=== PATIENT | female | born 1980 | race American Indian/Alaskan Native ===

== ENCOUNTER 2019-05-29 10:03 | Emergency (ER) | payer MEDICAID ==
[2019-05-29] MEDS ORDERED: SODIUM CHLORIDE 0.9% 1000 ML 1,000 ML IV ONE (10:21)
[2019-05-29] MEDS ORDERED: MORPHINE 4 MG/1 ML INJ IV ONE (10:21)
[2019-05-29] MEDS ORDERED: ONDANSETRON 4 MG/2 ML INJ IV ONE ×2 (10:21→14:26)
[2019-05-29] MEDS ORDERED: BENZONATATE 100 MG CAP PO ONE (10:22)
[2019-05-29] MEDS ORDERED: HYDROcodone/ACETAMINOPHEN 5-325 MG TAB PO ONE (10:22)
[2019-05-29] MEDS ORDERED: ALBUTEROL 2.5 MG/3 ML NEBU IH ONE (10:23)
[2019-05-29] MEDS ORDERED: MAGNESIUM SULFATE 2 GM/50 ML BAG IV ONE (10:23)
[2019-05-29] MEDS ORDERED: IPRATROPIUM 0.02% NEBU 2.5 ML IH ONE (10:23)
--- NOTE | 2019-05-29 10:30 | Emergency Department Report ---
- General Chief Complaint: Dyspnea/Respdistress Stated Complaint: ELIEZER Time Seen by Provider: 05/29/19 10:12 Source: patient, EMS Mode of arrival: Stretcher Limitations: No Limitations - History of Present Illness Initial Comments: 38-year-old female the past medical history of asthma, HIV, chronic kidney disease and previous cholecystectomy presents to the hospital complaining of cough, nausea, vomiting, and diarrhea for a few days. Patient complains of cough productive of white sputum. She's having nausea, vomiting, and diarrhea and not tolerating by mouth intake. She states that she has not had a asthma attack and for years but she's had increased wheezing and shortness of breath for the last few days. Today she had wheezing with associated syncope and was told her room air saturation was 87%. She received a DuoNeb and Solu-Medrol via EMS and refused transport to the hospital. He does not currently have any bronchodilators at home. She does smoke cigarettes. She states her viral load is undetectable. She gives a history of 3 previous intubations. No fever reported but positive chills. Patient did receive a flu and pneumonia shot this season. Her doctors are affiliated with [facility]. - Related Data Previous Rx's Medication Instructions Recorded Last Taken Type ALBUTEROL Inhaler (OR & NICU) 2 puff IH QID PRN #8.5 gram 05/29/19 Unknown Rx [ProAir HFA Inhaler] Azithromycin [Zithromax TAB] 250 mg PO QDAY #4 tablet 05/29/19 Unknown Rx Benzonatate [Tessalon Perles] 100 mg PO Q8HR PRN #20 capsule 05/29/19 Unknown Rx HYDROcodone/APAP 5-325 [[place] 1 each PO Q6HR PRN #15 tablet 05/29/19 Unknown Rx 5/325] Inhaler, Assist Devices [Space 1 each MC PRN #1 spacer 05/29/19 Unknown Rx Chamber Plus] Prednisone [predniSONE 10 mg 10 mg PO .TAPER #1 tab.ds.pk 05/29/19 Unknown Rx (6-Day Pack, 21 Tabs)] Promethazine [Phenergan] 25 mg PO Q6HR PRN #20 tab 05/29/19 Unknown Rx Allergies Allergy/AdvReac Type Severity Reaction Status Date / Time aspirin Allergy Hives Verified 05/29/19 10:15 Penicillins Allergy Hives Verified 05/29/19 10:15 ED Review of Systems ROS: Stated complaint: ELIEZER Other details as noted in HPI Comment: All other systems reviewed and negative ED Past Medical Hx - Past Medical History Previous Medical History?: Yes Hx Renal Disease: Yes (CKD) Hx Asthma: Yes Hx HIV: Yes Additional medical history: bronchtitis - Surgical History Past Surgical History?: Yes Hx Cholecystectomy: Yes - Social History Smoking Status: Current Every Day Smoker Substance Use Type: Alcohol, Marijuana - Medications Home Medications: Home Medications Medication Instructions Recorded Confirmed Last Taken Type ALBUTEROL Inhaler (OR & NICU) 2 puff IH QID PRN #8.5 gram 05/29/19 Unknown Rx [ProAir HFA Inhaler] Azithromycin [Zithromax TAB] 250 mg PO QDAY #4 tablet 05/29/19 Unknown Rx Benzonatate [Tessalon Perles] 100 mg PO Q8HR PRN #20 capsule 05/29/19 Unknown Rx HYDROcodone/APAP 5-325 [[place] 1 each PO Q6HR PRN #15 tablet 05/29/19 Unknown Rx 5/325] Inhaler, Assist Devices [Space 1 each MC PRN #1 spacer 05/29/19 Unknown Rx Chamber Plus] Prednisone [predniSONE 10 mg 10 mg PO .TAPER #1 tab.ds.pk 05/29/19 Unknown Rx (6-Day Pack, 21 Tabs)] Promethazine [Phenergan] 25 mg PO Q6HR PRN #20 tab 05/29/19 Unknown Rx ED Physical Exam - General Limitations: No Limitations - Other Other exam information: General: No acute distress Head: Atraumatic Eyes: normal appearance ENT: Moist mucous membranes, no sinus pressure tenderness, mild left tm redness Neck: Normal appearance, no midline tenderness Chest: Bilateral wheezing, tachypnea, frequent coughing, right-sided chest wall tenderness CV: Regular rate and rhythm Abdomen: Soft, normal bowel sounds, nontender, nondistended, no rebound or guarding Back: Normal inspection Extremity: Normal inspection infection, full range of motion, no calf tenderness or leg edema Neuro: Alert O x 3, no facial asymmetry, speech clear, no gross motor sensory deficit Psych: Appropriate behavior Skin: No rash ED Course Vital Signs 05/29/19 05/29/19 05/29/19 10:10 10:15 10:16 Temperature 98.4 F Pulse Rate 83 82 Pulse Rate [ Right Lower Lobe] Respiratory 29 H 24 Rate Respiratory Rate [Right Lower Lobe] Blood Pressure 126/70 117/75 O2 Sat by Pulse 99 97 97 Oximetry 05/29/19 05/29/19 05/29/19 10:25 10:46 10:58 Temperature Pulse Rate 100 H Pulse Rate [ 80 Right Lower Lobe] Respiratory 24 24 Rate Respiratory 18 Rate [Right Lower Lobe] Blood Pressure 127/56 O2 Sat by Pulse 97 97 Oximetry 05/29/19 05/29/19 05/29/19 11:00 11:30 12:22 Temperature Pulse Rate 71 73 Pulse Rate [ Right Lower Lobe] Respiratory 16 22 Rate Respiratory Rate [Right Lower Lobe] Blood Pressure 127/56 120/67 98/73 O2 Sat by Pulse 100 100 99 Oximetry 05/29/19 05/29/19 12:30 13:00 Temperature Pulse Rate 75 Pulse Rate [ Right Lower Lobe] Respiratory 15 Rate Respiratory Rate [Right Lower Lobe] Blood Pressure 115/56 118/63 O2 Sat by Pulse 98 98 Oximetry ED Medical Decision Making - Lab Data Result diagrams: 05/29/19 10:36 05/29/19 10:36 Lab Results 05/29/19 05/29/19 05/29/19 Range/Units 10:36 10:36 10:36 WBC 5.4 (4.5-11.0) K/mm3 RBC 4.11 (3.65-5.03) M/mm3 Hgb 13.1 (10.1-14.3) gm/dl Hct 38.4 (30.3-42.9) % MCV 93 (79-97) fl MCH 32 (28-32) pg MCHC 34 (30-34) % RDW 14.2 (13.2-15.2) % Plt Count 249 (140-440) K/mm3 Lymph % (Auto) 42.6 H (13.4-35.0) % [place] % (Auto) 12.7 H (0.0-7.3) % Eos % (Auto) 0.9 (0.0-4.3) % Baso % (Auto) 0.9 (0.0-1.8) % Lymph # 2.3 (1.2-5.4) K/mm3 [place] # 0.7 (0.0-0.8) K/mm3 Eos # 0.0 (0.0-0.4) K/mm3 Baso # 0.0 (0.0-0.1) K/mm3 Seg Neutrophils % 42.9 (40.0-70.0) % Seg Neutrophils # 2.3 (1.8-7.7) K/mm3 Sodium 138 (137-145) mmol/L Potassium 3.7 (3.6-5.0) mmol/L Chloride 105.4 (98-107) mmol/L Carbon Dioxide 15 L (22-30) mmol/L Anion Gap 21 mmol/L BUN 15 (7-17) mg/dL Creatinine 1.2 (0.7-1.2) mg/dL Estimated GFR 50 ml/min BUN/Creatinine Ratio 13 % Glucose 99 (65-100) mg/dL Calcium 9.1 (8.4-10.2) mg/dL HCG, Qual Negative (Negative) Influenza A (Rapid) (Negative) Influenza B (Rapid) (Negative) 05/29/19 Range/Units 10:56 WBC (4.5-11.0) K/mm3 RBC (3.65-5.03) M/mm3 Hgb (10.1-14.3) gm/dl Hct (30.3-42.9) % MCV (79-97) fl MCH (28-32) pg MCHC (30-34) % RDW (13.2-15.2) % Plt Count (140-440) K/mm3 Lymph % (Auto) (13.4-35.0) % [place] % (Auto) (0.0-7.3) % Eos % (Auto) (0.0-4.3) % Baso % (Auto) (0.0-1.8) % Lymph # (1.2-5.4) K/mm3 [place] # (0.0-0.8) K/mm3 Eos # (0.0-0.4) K/mm3 Baso # (0.0-0.1) K/mm3 Seg Neutrophils % (40.0-70.0) % Seg Neutrophils # (1.8-7.7) K/mm3 Sodium (137-145) mmol/L Potassium (3.6-5.0) mmol/L Chloride (98-107) mmol/L Carbon Dioxide (22-30) mmol/L Anion Gap mmol/L BUN (7-17) mg/dL Creatinine (0.7-1.2) mg/dL Estimated GFR ml/min BUN/Creatinine Ratio % Glucose (65-100) mg/dL Calcium (8.4-10.2) mg/dL HCG, Qual (Negative) Influenza A (Rapid) Negative (Negative) Influenza B (Rapid) Negative (Negative) - EKG Data -: EKG Interpreted by Me EKG shows normal: sinus rhythm, ST-T waves (no stemi) Rate: normal (81) - EKG Data When compared to previous EKG there are: previous EKG unavailable - Radiology Data Radiology results: report reviewed CHEST 2 VIEWS INDICATION / CLINICAL INFORMATION: cough, wheeze, sob. COMPARISON: None available. FINDINGS: SUPPORT DEVICES: None. HEART / MEDIASTINUM: No significant abnormality. LUNGS / PLEURA: No significant pulmonary or pleural abnormality. .No pneumothorax. ADDITIONAL FINDINGS: No significant additional findings. IMPRESSION: 1. No acute findings. - Medical Decision Making Patient did have episode of vomiting after eating and also having frequent coughing. Abdomen remains nontender. Wheezing has resolved. Overall feels better with a room air saturation in the high 90s. mild otitis noted. given 1 dose of azithromycin and ed and will be continued.f/u advised - Differential Diagnosis bronchitis, flu, viral syndrome, pneumonia, otitis or sinusitis Critical Care Time: No Critical care attestation.: If time is entered above; I have spent that time in minutes in the direct care of this critically ill patient, excluding procedure time. ED Disposition Clinical Impression: Acute bronchitis, Viral syndrome, HIV (human immunodeficiency virus infection) Disposition: DC-01 TO HOME OR SELFCARE Is pt being admited?: No Does the pt Need Aspirin: No Condition: Stable Instructions: Acute Bronchitis (ED), Human Immunodeficiency Virus Infection (ED), Viral Syndrome (ED) Additional Instructions: Take the medication as prescribed. Follow-up with your doctor or doctor/clinic provided. Return if symptoms worsen as indicated by your discharge instructions. Prescriptions: HYDROcodone/APAP 5-325 [[place] 5/325] 1 each PO Q6HR PRN #15 tablet PRN Reason: Pain Promethazine [Phenergan] 25 mg PO Q6HR PRN #20 tab PRN Reason: Nausea Prednisone [predniSONE 10 mg (6-Day Pack, 21 Tabs)] 10 mg PO .TAPER #1 tab.ds.pk ALBUTEROL Inhaler (OR & NICU) [ProAir HFA Inhaler] 2 puff IH QID PRN #8.5 gram PRN Reason: Shortness Of Breath Inhaler, Assist Devices [Space Chamber Plus] 1 each MC PRN #1 spacer Benzonatate [Tessalon Perles] 100 mg PO Q8HR PRN #20 capsule PRN Reason: Cough Azithromycin [Zithromax TAB] 250 mg PO QDAY #4 tablet Referrals: PRIMARY CARE, [Referring] - 3-5 Days Time of Disposition: 15:12
[2019-05-29 11:05] LABS: Basophils % (Auto) 0.9 % (0.0-1.8); Eosinophils % (Auto) 0.9 % (0.0-4.3); Hematocrit 38.4 % (30.3-42.9); Hemoglobin 13.1 gm/dl (10.1-14.3); Lymphocytes # (Auto) 2.3 K/mm3 (1.2-5.4); Lymphocytes % (Auto) 42.6 % (13.4-35.0); Mean Corpuscular HGB Conc 34 % (30-34); Mean Corpuscular Volume 93 fl (79-97); Monocytes # (Auto) 0.7 K/mm3 (0.0-0.8); Monocytes % (Auto) 12.7 % (0.0-7.3); Platelet Count 249 K/mm3 (140-440); Red Blood Count 4.11 M/mm3 (3.65-5.03); Red Cell Distribution Width 14.2 % (13.2-15.2)
[2019-05-29 11:11] LABS: Calcium 9.1 mg/dL (8.4-10.2)
--- NOTE | 2019-05-29 13:23 | XRay Report ---
CHEST 2 VIEWS INDICATION / CLINICAL INFORMATION: cough, wheeze, sob. COMPARISON: None available. FINDINGS: SUPPORT DEVICES: None. HEART / MEDIASTINUM: No significant abnormality. LUNGS / PLEURA: No significant pulmonary or pleural abnormality. .No pneumothorax. ADDITIONAL FINDINGS: No significant additional findings. IMPRESSION: 1. No acute findings. Signer Name: Patel Hayden MD Signed: 05/29/2019 1:18 PM Workstation Name: [id number]
[2019-05-29] MEDS ORDERED: AZITHROMYCIN 250 MG TAB PO ONE (15:06)
[2019-05-29 15:51] VITALS: BP 121/58
== END 2019-05-29 16:04 | disposition home or self-care (01) ==
LOC: ED 10:03
DX: J20.9 Acute bronchitis, unspecified (principal); B34.9 Viral infection, unspecified; N18.9 Chronic kidney disease, unspecified; F17.200 Nicotine dependence, unspecified, uncomplicated; F12.10 Cannabis abuse, uncomplicated; Z21 Asymptomatic human immunodeficiency virus [HIV] infection status; Z90.49 Acquired absence of other specified parts of digestive tract; Z79.899 Other long term (current) drug therapy; Z88.6 Allergy status to analgesic agent; Z88.0 Allergy status to penicillin
CPT/HCPCS: 36415; 71046; 80048; 84703; 85025; 87400; 93005; 93010; 94640; 96365; 96375; 96376; 99284; J2270; J2405; J3475; J7030; 94644; 96361

== ENCOUNTER 2019-06-01 01:36 | Emergency (ER) | payer MEDICAID ==
[2019-06-01 02:00] VITALS: BP 154/91
== END 2019-06-01 03:20 | disposition left against medical advice (07) ==
LOC: ED 01:36
DX: H92.03 Otalgia, bilateral (principal); Z53.21 Procedure and treatment not carried out due to patient leaving prior to being seen by health care provider